=== PATIENT | male | born 1995 | race Two or more races ===

== ENCOUNTER 2017-05-24 12:54 | Emergency (ER) | payer OTHER ==
[~2017-05-24] VITALS: Ht 154.9 cm; Wt 68.0 kg
--- NOTE | 2017-05-24 12:56 | NUR ---
PT AMBULATORY TO ER BED 04. STATES "I HAD SEIZURE EARLIER AND I FEEL LIKE IM GONNA HAVE ANOTHER ONE." PT IS REQUESTING ATIVAN. DENIES PAIN. NAD NOTED. AWAITING MD ELIZABETH.
--- NOTE | 2017-05-24 13:10 | NUR ---
DR SEBASTIAN AT BEDSIDE FOR EVAL.
--- NOTE | 2017-05-24 13:15 | NUR ---
IV LINE STARTED BLOOD DRAWN AND SENT TO LAB.
[2017-05-24 13:21] LABS: BASOPHILS % (AUTO) 0.5 % (0.0-2.0); EOSINOPHILS # (AUTO) 0.4 /CMM (0.0-0.7); EOSINOPHILS % (AUTO) 8.2 % (0.0-6.0); HEMATOCRIT 43 % (39-51); HEMOGLOBIN 14.9 g/dL (13.5-17.5); LYMPHOCYTES # (AUTO) 1.8 /CMM (0.8-4.8); LYMPHOCYTES % (AUTO) 38.9 % (20.0-44.0); MEAN CORPUSCULAR HEMOGLOBIN 32 PG (26.0-33.0); MEAN CORPUSCULAR HGB CONC 35 g/dl (31.0-36.0); MEAN CORPUSCULAR VOLUME 91 fL (80-96); MONOCYTES # (AUTO) 0.5 /CMM (0.1-1.30); MONOCYTES % (AUTO) 10.9 % (2.0-12.0); NEUTROPHILS # (AUTO) 1.9 /CMM (1.8-8.9); NEUTROPHILS % (AUTO) 41.5 % (43.0-81.0); PLATELET COUNT (AUTO) 201 /CMM (150-450); RDW COEFFICIENT OF VARIATION 12.4 (11.5-15.0); RED BLOOD CELL COUNT(AUTO) 4.66 MIL/uL (4.5-6.0); WHITE BLOOD COUNT (AUTO) 4.6 K/uL (4.3-11.0)
[2017-05-24] MEDS ORDERED: LEVETIRACETAM (500MG) 500 MG in IV NS 0.9% 100 ML IV ONE (13:30)
[2017-05-24] MEDS ORDERED: IV NS 0.9% 500 ML BAG IV ONE (13:30)
[2017-05-24 13:50] LABS: ALANINE AMINOTRANSFERASE 194 U/L (12-78); ALCOHOL, BLOOD < 3 mg/dL (0-0); ALKALINE PHOSPHATASE 136 U/L (46-116); ASPARTATE AMINOTRANSFERASE 95 U/L (15-37); BILIRUBIN,DIRECT 0.1 mg/dL (0.0-0.2); BILIRUBIN,TOTAL 0.3 mg/dL (0.2-1.0); CARBON DIOXIDE 29 mmol/L (21-32); CHLORIDE 104 mmol/L (98-107); CREATININE 0.8 mg/dL (0.6-1.3); GLUCOSE 88 mg/dL (74-106); POTASSIUM 4.1 mmol/L (3.5-5.1); SODIUM SERUM 138 mmol/L (136-145); TOTAL PROTEIN, SERUM 8.1 g/dL (6.4-8.2); UREA NITROGEN, BLOOD 8 mg/dL (7-18)
--- NOTE | 2017-05-24 14:52 | NUR ---
Patient discharged to home in stable condition. Written and verbal after care instructions given. Patient verbalizes understanding of instruction.IV removed. Catheter intact and site benign. Pressure and 4x4 applied to site. No bleeding noted.
[2017-05-24 14:53] VITALS: BP 132/70
== END 2017-05-24 14:54 | disposition home or self-care (01) ==
LOC: ER 12:54
DX: G40.909 Epilepsy, unspecified, not intractable, without status epilepticus (principal); F32.9 Major depressive disorder, single episode, unspecified; F41.9 Anxiety disorder, unspecified; F10.10 Alcohol abuse, uncomplicated
CPT/HCPCS: 36415; 80048; 80076; 85025; 96365; 99284; A4606; G0480; J1953; J7030; J7040; Z7610